=== PATIENT | female | born 1970 | race Caucasian/White ===

== ENCOUNTER 2018-04-02 12:38 | Inpatient (IN) | payer SELFPAY ==
--- NOTE | 2018-04-02 15:30 | EDPHYS ---
Physician Documentation [facility] Name: Rochelle Neely Age: 48 yrs Sex: Female : 1970 Arrival Date: 04/02/2018 Time: 12:38 Bed 14 Private MD: ED Physician Kumar Alves HPI: 04/02 15:21 This 48 yrs old Female presents to ER via Ambulatory with complaints of Wound snw Check. 15:21 The affected area is on the left hamstring. Previous treatment: none. pt states she has snw had a cyst to left thigh for several years, became red, swollen, tender 3-4 days ago, worsening. The patient has been recently seen at an urgent care, today, for similar complaints, and was sent to the [facility] Emergency Department for further evaluation. RESIDENT SERVICES MANAGER: 12:55 LMP N/A - Irregular menses aj Historical: - Allergies: 12:55 Codeine; aj - Home Meds: 12:55 None [Active]; aj - PMHx: 12:55 None; aj - PSHx: 12:55 None; aj - Immunization history:: Last tetanus immunization: < 5 years ago. - Social history:: Smoking status: Patient/guardian denies using tobacco. - Ebola Screening: : Patient negative for fever greater than or equal to 101.5 degrees Fahrenheit, and additional compatible Ebola Virus Disease symptoms Patient denies exposure to infectious person Patient denies travel to an Ebola-affected area in the 21 days before illness onset No symptoms or risks identified at this time. ROS: 15:20 Constitutional: Negative for fever, chills, and weight loss, Eyes: Negative for injury, snw pain, redness, and discharge, ENT: Negative for injury, pain, and discharge, Neck: Negative for injury, pain, and swelling, Cardiovascular: Negative for chest pain, palpitations, and edema, Respiratory: Negative for shortness of breath, cough, wheezing, and pleuritic chest pain, Abdomen/GI: Negative for abdominal pain, nausea, vomiting, diarrhea, and constipation, Back: Negative for injury and pain, : Negative for injury, bleeding, discharge, and swelling, MS/Extremity: Negative for injury and deformity, Neuro: Negative for headache, weakness, numbness, tingling, and seizure. 15:20 Skin: Positive for abscess, cellulitis, erythema, swelling, of the left hamstring. Exam: 15:18 Constitutional: This is a well developed, well nourished patient who is awake, alert, snw and in no acute distress. Head/Face: Normocephalic, atraumatic. Eyes: Pupils equal round and reactive to light, extra-ocular motions intact. Lids and lashes normal. Conjunctiva and sclera are non-icteric and not injected. Cornea within normal limits. Periorbital areas with no swelling, redness, or edema. ENT: Nares patent. No nasal discharge, no septal abnormalities noted. Tympanic membranes are normal and external auditory canals are clear. Oropharynx with no redness, swelling, or masses, exudates, or evidence of obstruction, uvula midline. Mucous membranes moist. Neck: Trachea midline, no thyromegaly or masses palpated, and no cervical lymphadenopathy. Supple, full range of motion without nuchal rigidity, or vertebral point tenderness. No Meningismus. Chest/axilla: Normal chest wall appearance and motion. Nontender with no deformity. No lesions are appreciated. Cardiovascular: Tachycardic rate and rhythm with a normal S1 and S2. No gallops, murmurs, or rubs. Normal PMI, no JVD. No pulse deficits. Respiratory: Lungs have equal breath sounds bilaterally, clear to auscultation and percussion. No rales, rhonchi or wheezes noted. No increased work of breathing, no retractions or nasal flaring. Abdomen/GI: Soft, non-tender, with normal bowel sounds. No distension or tympany. No guarding or rebound. No evidence of tenderness throughout. Back: No spinal tenderness. No costovertebral tenderness. Full range of motion. MS/ Extremity: Pulses equal, no cyanosis. Neurovascular intact. Full, normal range of motion. Neuro: Awake and alert, GCS 15, oriented to person, place, time, and situation. Cranial nerves II-XII grossly intact. Motor strength 5/5 in all extremities. Sensory grossly intact. Cerebellar exam normal. Normal gait. Psych: Awake, alert, with orientation to person, place and time. Behavior, mood, and affect are within normal limits. 15:18 Skin: Appearance: normal except for affected area, abscess, that is moderate sized, with drainage, with induration, with surrounding cellulitis, that is moderate, that is severe, cellulitis, that is severe, well demarcated. Vital Signs: 12:55 BP 158 / 88; Pulse 111; Resp 20; Temp 99.0; Pulse Ox 98% on R/A; Weight 90.72 kg; aj Height 5 ft. 1 in. (154.94 cm); 13:55 BP 139 / 81; Pulse 101; Resp 19; Pulse Ox 98% on R/A; rb1 14:30 BP 133 / 78; Pulse 96; Resp 18; Pulse Ox 98% on R/A; rb1 15:30 BP 149 / 90; Pulse 100; Resp 18; Pulse Ox 98% on R/A; rb1 16:30 BP 134 / 74; Pulse 105; Resp 19; Pulse Ox 98% on R/A; rb1 17:21 BP 137 / 75; Pulse 102; Resp 20; Pulse Ox 99% ; rb1 12:55 Body Mass Index 37.79 (90.72 kg, 154.94 cm) aj MDM: 13:34 Patient medically screened. snw 15:16 Physician consultation: Stoney Dixon MD was called at 15:10, was contacted at 15:10, kdr regarding admission, patient's condition, and will see patient in ED, NPO aftermidnight. 15:17 Data reviewed: vital signs, nurses notes. Data interpreted: Pulse oximetry: on room air snw is 98 %. Interpretation: normal. Counseling: I had a detailed discussion with the patient and/or guardian regarding: the historical points, exam findings, and any diagnostic results supporting the discharge/admit diagnosis, the presence of at least one elevated blood pressure reading (>120/80) during this emergency department visit, lab results, the need for further work-up and treatment in the hospital. Physician consultation:. 04/02 15:09 Order name: Sed Rate; Complete Time: 16:42 snw 04/02 15:09 Order name: Lactate; Complete Time: 16:42 snw 04/02 15:09 Order name: Basic Metabolic Panel; Complete Time: 16:42 snw 04/02 15:09 Order name: Blood Culture Adult (2) snw 04/02 15:09 Order name: CBC with Diff; Complete Time: 16:42 snw 04/02 15:09 Order name: Procalcitonin; Complete Time: 16:42 snw 04/02 15:09 Order name: IV Saline Lock - Large Bore; Complete Time: 15:39 [facility] 04/02 15:09 Order name: Labs collected and sent; Complete Time: 15:39 [facility] 04/02 16:17 Order name: Manual Differential; Complete Time: 16:42 EDMS Administered Medications: Discontinued: NS 0.9% (30 ml/kg) 30 ml/kg IV at bolus once; Sepsis Protocol 15:40 Drug: NS 0.9% (30 ml/kg) 30 ml/kg Route: IV; Rate: bolus; Site: right antecubital; rb1 15:40 Drug: Clindamycin 600 mg Route: IVPB; Infused Over: 30 mins; Site: right antecubital; rb1 16:28 Follow up: Response: No adverse reaction; IV Status: Completed infusion rb1 16:37 Drug: vancoMYCIN 1 grams Route: IVPB; Infused Over: 2 hrs; Site: right antecubital; rb1 17:47 Follow up: Response: No adverse reaction; IV Status: Completed infusion rb1 Disposition: 18:56 Co-signature as Attending Physician, Kumar Alves MD I agree with the assessment and kdr plan of care. Disposition: 04/02/18 15:29 Hospitalization ordered by Stoney Dixon for Inpatient Admission. Preliminary diagnosis are Cutaneous abscess of left lower limb, Cellulitis of left lower limb. - Bed requested for Telemetry/MedSurg (Inpatient). - Status is Inpatient Admission. rb1 - Condition is Stable. - Problem is new. - Symptoms are unchanged. UTI on Admission? No Signatures: Dispatcher [employer] EDCT Tita Licona RN RN aj Rittger, Kevin, MD MD [facility] Caryn Bustos, [employer] Mallika Parisi, RN RN rb1 Loren Arenas Corrections: (The following items were deleted from the chart) 15:40 15:29 Hospitalization Ordered by Stoney Dixon MD for Inpatient Admission. Preliminary eb diagnosis is Cutaneous abscess of left lower limb; Cellulitis of left lower limb. Bed requested for Telemetry/MedSurg (Inpatient). Status is Inpatient Admission. Condition is Stable. Problem is new. Symptoms are unchanged. UTI on Admission? No. snw 15:47 15:40 04/02/2018 15:29 Hospitalization Ordered by Stoney Dixon MD for Inpatient eb Admission. Preliminary diagnosis is Cutaneous abscess of left lower limb; Cellulitis of left lower limb. Bed requested for Telemetry/MedSurg (Inpatient). Status is Inpatient Admission. Condition is Stable. Problem is new. Symptoms are unchanged. UTI on Admission? No. eb 16:17 15:47 04/02/2018 15:29 Hospitalization Ordered by Stoney Dixon MD for Inpatient eb Admission. Preliminary diagnosis is Cutaneous abscess of left lower limb; Cellulitis of left lower limb. Bed requested for Telemetry/MedSurg (Inpatient). Status is Inpatient Admission. Condition is Stable. Problem is new. Symptoms are unchanged. UTI on Admission? No. eb 17:54 16:17 04/02/2018 15:29 Hospitalization Ordered by Stoney Dixon MD for Inpatient rb1 Admission. Preliminary diagnosis is Cutaneous abscess of left lower limb; Cellulitis of left lower limb. Bed requested for Telemetry/MedSurg (Inpatient). Status is Inpatient Admission. Condition is Stable. Problem is new. Symptoms are unchanged. UTI on Admission? No. eb
--- NOTE | 2018-04-02 15:30 | ER ---
Nurse's Notes [facility] Name: Rochelle Neely Age: 48 yrs Sex: Female : 1970 Arrival Date: 04/02/2018 Time: 12:38 Bed 14 Private MD: Diagnosis: Cutaneous abscess of left lower limb;Cellulitis of left lower limb Presentation: 04/02 12:53 Presenting complaint: Patient states: Abscess to left posterior thigh for 2 days. Sent aj for evaluation by Urgent Care. Transition of care: patient was not received from another setting of care. Onset of symptoms was March 31, 2018. Risk Assessment: Do you want to hurt yourself or someone else? Patient reports no desire to harm self or others. Initial Sepsis Screen: Does the patient meet any 2 criteria? No. Patient's initial sepsis screen is negative. Does the patient have a suspected source of infection? No. Patient's initial sepsis screen is negative. Care prior to arrival: None. 12:53 Method Of Arrival: Ambulatory 12:53 Acuity: DARIANA 3 aj Triage Assessment: 12:55 General: Appears in no apparent distress. comfortable, Behavior is calm, cooperative, aj appropriate for age. Pain: Complains of pain in left hamstring. Neuro: Level of Consciousness is awake, alert, obeys commands, Oriented to person, place, time, situation, Appropriate for age. Respiratory: Airway is patent Respiratory effort is even, unlabored, Respiratory pattern is regular, symmetrical. Derm: Skin is intact, is healthy with good turgor, Skin is pink, warm \\T\\ dry. normal, Abscess located on left hamstring is half dollar sized, has clear drainage, is hot to touch, is red, is raised. RISK TECH: 12:55 LMP N/A - Irregular menses aj Historical: - Allergies: 12:55 Codeine; aj - Home Meds: 12:55 None [Active]; aj - PMHx: 12:55 None; aj - PSHx: 12:55 None; aj - Immunization history:: Last tetanus immunization: < 5 years ago. - Social history:: Smoking status: Patient/guardian denies using tobacco. - Ebola Screening: : Patient negative for fever greater than or equal to 101.5 degrees Fahrenheit, and additional compatible Ebola Virus Disease symptoms Patient denies exposure to infectious person Patient denies travel to an Ebola-affected area in the 21 days before illness onset No symptoms or risks identified at this time. Screenin:25 Abuse screen: Denies threats or abuse. Nutritional screening: No deficits noted. rb1 Tuberculosis screening: No symptoms or risk factors identified. Fall Risk None identified. Assessment: 13:25 General: Appears in no apparent distress. comfortable, Behavior is calm, cooperative, rb1 Denies fever. General: pt. stated, "I have had a cyst on the back of my leg for about six years and it just started bothering a couple days ago.". Pain: Denies pain. Pain: Complains of pain in left hamstring Pain currently is 1 out of 10 on a pain scale. Neuro: Level of Consciousness is awake, alert, obeys commands, Oriented to person, place, time, situation. Cardiovascular: Capillary refill < 3 seconds is brisk in bilateral fingers. Respiratory: Airway is patent Respiratory effort is even, unlabored, Respiratory pattern is regular, symmetrical. GI: No signs and/or symptoms were reported involving the gastrointestinal system. : No signs and/or symptoms were reported regarding the genitourinary system. Derm: Skin is red, Skin temperature is warm Wound noted left hamstring Parent/caregiver reports the patient having pt. stated, "I got some green nasty stuff out of it and then it started bleeding yesterday.". Musculoskeletal: Range of motion: intact in all extremities. 14:20 Reassessment: Patient appears in no apparent distress at this time. No changes from rb1 previously documented assessment. 15:20 Reassessment: Patient appears in no apparent distress at this time. Patient and/or rb1 family updated on plan of care and expected duration. Pain level reassessed. Patient is alert, oriented x 3, equal unlabored respirations, skin warm/dry/pink. 16:00 Reassessment: Tried to call report but was told that the room was dirty and the [facility] vice president payer was going there next per Izzy, principal secretary. 16:15 Reassessment: Spoke to Izzy on 4 th floor, room is still dirty, unable to give rb1 report. Izzy stated, "We have the pt. going to room 418 not 413 so you might want to have them change it." [facility] 16:20 Reassessment: Patient appears in no apparent distress at this time. No changes from rb1 previously documented assessment. 16:40 Reassessment: Tried to call report and was told that the room was still dirty. rb1 Housekeeping was cleaning 411 and I asked if they could clean 418 next and Izzy got agitated and said that they were going there next. Izzy said that she contacted wash house worker to get more housekeepers to the floor to help clean the rooms. Notified SOCORRO Heck. 17:15 Reassessment: Patient appears in no apparent distress at this time. Patient and/or rb1 family updated on plan of care and expected duration. Pain level reassessed. Patient is alert, oriented x 3, equal unlabored respirations, skin warm/dry/pink. Dr. Dixon is at bedside discussing the POC with the pt. 17:17 Reassessment: I tried to call report again and was told by Izzy that GINO Roper was in rb1 a pt. room and would need a few minutes before she could get report. 17:36 Reassessment: Gave report to GINO Roper. Information from the SBAR was given. All rb1 questions asked and answered. Vital Signs: 12:55 BP 158 / 88; Pulse 111; Resp 20; Temp 99.0; Pulse Ox 98% on R/A; Weight 90.72 kg; aj Height 5 ft. 1 in. (154.94 cm); 13:55 BP 139 / 81; Pulse 101; Resp 19; Pulse Ox 98% on R/A; rb1 14:30 BP 133 / 78; Pulse 96; Resp 18; Pulse Ox 98% on R/A; rb1 15:30 BP 149 / 90; Pulse 100; Resp 18; Pulse Ox 98% on R/A; rb1 16:30 BP 134 / 74; Pulse 105; Resp 19; Pulse Ox 98% on R/A; rb1 17:21 BP 137 / 75; Pulse 102; Resp 20; Pulse Ox 99% ; rb1 12:55 Body Mass Index 37.79 (90.72 kg, 154.94 cm) aj ED Course: 12:38 Patient arrived in ED. as 12:54 Triage completed. aj 12:55 Arm band placed on left wrist. Patient placed in waiting room, Patient notified of wait aj time. 13:25 Patient has correct armband on for positive identification. Bed in low position. Call rb1 light in reach. Side rails up X 1. Pulse ox on. NIBP on. 13:33 Caryn Bustos [facility]-C [facility]. snw 13:33 Kumar Alves MD is Attending Physician. snw 13:42 Mallika Parisi, RN is Primary Nurse. rb1 15:28 Stoney Dixon MD is Hospitalizing Provider. snw 15:30 Initial lab(s) drawn, by mt, sent to lab. First set of blood cultures drawn by mt, ag Second set of blood cultures drawn. Inserted saline lock: 20 gauge in right antecubital area, using aseptic technique. Blood collected. 15:39 Sed Rate Sent. ag 15:39 Lactate Sent. ag 15:39 Basic Metabolic Panel Sent. ag 15:39 Blood Culture Adult (2) Sent. ag 15:39 CBC with Diff Sent. ag 15:39 Procalcitonin Sent. ag 17:53 No provider procedures requiring assistance completed. Patient admitted, IV remains in rb1 place. Administered Medications: Discontinued: NS 0.9% (30 ml/kg) 30 ml/kg IV at bolus once; Sepsis Protocol 15:40 Drug: NS 0.9% (30 ml/kg) 30 ml/kg Route: IV; Rate: bolus; Site: right antecubital; rb1 15:40 Drug: Clindamycin 600 mg Route: IVPB; Infused Over: 30 mins; Site: right antecubital; rb1 16:28 Follow up: Response: No adverse reaction; IV Status: Completed infusion rb1 16:37 Drug: vancoMYCIN 1 grams Route: IVPB; Infused Over: 2 hrs; Site: right antecubital; rb1 17:47 Follow up: Response: No adverse reaction; IV Status: Completed infusion rb1 Outcome: 15:29 Decision to Hospitalize by Provider. snw 17:53 Admitted to Tele accompanied by tech, family with patient, via wheelchair, room 418, rb1 with chart, Report called to GINO Roper 17:53 Condition: stable 17:53 Instructed on the need for admit. 17:54 Patient left the ED. rb1 Signatures: Tita Licona RN Caryn Lugo FNP-C DIRECTOR REGULATORY AFFAIRS-Csnw Vera Dixon Ana Mallika Parisi, RN RN rb1 Corrections: (The following items were deleted from the chart) 17:23 17:15 Reassessment: Dr. Dixon is at bedside discussing the POC with the pt. rb1 rb1
[2018-04-02] MEDS ORDERED: CLINDAMYCIN 600MG/D5W 600 MG/50 ML BAG IV ONE (15:40)
[2018-04-02] MEDS ORDERED: NA CHLORIDE 0.9% 2,000 ML ONE (15:40)
[2018-04-02 15:52] LABS: Absolute Monocytes 0.5 K/uL (0.1-1.3); Basophils % 0.4 % (0-1.3); Eosinophils % 0.6 % (0-4.4); Lymphocytes % 8.7 % (15.3-44.8); MCH 32.4 pg (27.0-35.0); MCV 92.3 fL (80-100); MPV 8.5 fL (7.6-11.3); Monocytes % 4.2 % (3.3-12.3); RBC Red Blood Cell Count 4.23 M/uL (3.86-4.86)
[2018-04-02 16:16] LABS: Platelet Estimate ADEQ
[2018-04-02 16:17] LABS: Blood Morphology Comment NOTED (NOT SEEN); Polychromasia 1+
[2018-04-02 16:20] LABS: BUN Blood Urea Nitrogen 6 mg/dL (7-18); Bicarbonate 28 mmol/L (21-32); Glucose Level 98 mg/dL (74-106); Potassium 3.5 mmol/L (3.5-5.1); Sodium Level 136 mmol/L (136-145)
[2018-04-02] MEDS ORDERED: VANCOMYCIN/NS 1 gm 1 GM/250 ML BAG IVPB SCH (17:00)
[2018-04-02] MEDS ORDERED: CLINDAMYCIN INJ 600 MG in NA CHLORIDE 0.9% 50 ML IV ONE (17:00)
[2018-04-02] MEDS ORDERED: ACETAMINOPHEN 500 MG TAB PO PRN (18:10)
[2018-04-02] MEDS ORDERED: CLINDAMYCIN INJ 600 MG in NA CHLORIDE 0.9% 50 ML IV SCH (18:10)
[2018-04-02] MEDS: NA CHLORIDE 0.9% 1,000 ML IV SCH (19:24)
[2018-04-02] MEDS: HYDROCODONE/APAP 5/325 MG TAB PO PRN ×2 (19:27→21:11)
[2018-04-02] MEDS ORDERED: VANCOMYCIN 1 GM in NA CHLORIDE 0.9% 500 ML IVPB SCH (21:00)
[2018-04-02] MEDS ORDERED: VANCOMYCIN 500 MG in NA CHLORIDE 0.9% 100 ML IVPB ONE (21:00)
[2018-04-02] MEDS ORDERED: VANCOMYCIN 500 MG/VIAL ONE (21:06)
[2018-04-02] MEDS ORDERED: NA CHLORIDE 0.9% 100 ML ONE (21:06)
[2018-04-02 23:43] VITALS: BMI 37.8
[2018-04-03] MEDS ORDERED: CLINDAMYCIN INJ 600 MG in NA CHLORIDE 0.9% 50 ML IV SCH (01:00)
[2018-04-03] MEDS: NA CHLORIDE 0.9% 1,000 ML IV SCH ×3 (01:50→17:44)
[2018-04-03] MEDS: CLINDAMYCIN INJ 600 MG in NA CHLORIDE 0.9% 50 ML IV SCH ×3 (01:50→17:44)
[2018-04-03] MEDS: VANCOMYCIN 1.5 GM in NA CHLORIDE 0.9% 500 ML IVPB SCH ×2 (08:26→21:20)
--- NOTE | 2018-04-03 10:14 | HP ---
Date of Admission: 04/02/2018 Reason For Service: Cellulitis and abscess of the left buttock and thigh. History Of Present Illness: This is the case of a 48-year-old patient who claims she has mass on the left thigh posteriorly. She has been postponing to remove it for a long time, this time came with r edness over an area of the buttock and thigh that has been 25 x 15 cm. She started to notice some pu rulent discharge coming from the mass and induration and increased increase temperature of the thigh for the last week. She denies any trauma, dysuria, hematuria, hematochezia, or melena. Denies any r ecent traveling out of the country. Denies any family members sick at home. The patient advised the importance of colonoscopies, breast exams, mammograms, and also the importance of wound caring when this is taken care of. Past Medical History: None. Allergies: NONE. Social History: She does smoke. She does not drink alcohol. Family History: Noncontributory. Review of Systems: Ten points otherwise unremarkable. Physical Examination: General: The patient is awake, alert. HEENT: Pupils are equal and reactive, anicteric. Neck: Supple. Chest: Clear. Heart: S1, S2. Abdomen: Soft and depressible. Nontender, nondistended. Bowel sounds positive. Breasts/Rectal/Pelvic: Deferred. Extremities: Over the left buttock and left thigh, the patient has an area of cellulitis, increased induration, also pressing over the mass in the center with purulent discharge. Dorsalis pedis pulses bilaterally are present. Full range of motion. Neuro: Cranial nerves 2 through 12 grossly within normal limits. Laboratory Data: Blood work is reviewed. Assessment: A 48-year-old patient with cellulitis and abscess of the left buttock and thigh. The pa tient will need incision and drainage with benefits, alternatives, and risks including, but not limit ed to infection, bleeding, damage to adjacent structures, anesthesia complication, nonhealing wound, ID, and even . She also understood this may not relieve the symptoms. She might need more than one surgical intervention. She understands she will require wound care. It is tender right now, to be done with local anesthetic. She does not want a local anesthetic, she wants anesthesia, so we ar e going to put her n.p.o. and then proceed accordingly. /JOE Voice ID: [id number]
[2018-04-03] MEDS ORDERED: FENTANYL CITR 100 MCG/2 ML ONE (12:55)
[2018-04-03] MEDS ORDERED: PROPOFOL 200 MG/20 ML VIAL IV ONE (12:55)
[2018-04-03] MEDS ORDERED: LIDOCAINE 1% MPF 5 ML VIAL ONE (12:55)
[2018-04-03] MEDS ORDERED: MIDAZOLAM HCL 2 MG/2 ML INJ ONE (12:55)
[2018-04-03] MEDS ORDERED: KETOROLAC 30 MG/ML INJ ONE (13:33)
[2018-04-03] MEDS ORDERED: ONDANSETRON HCL 40 MG/20 ML VIAL ONE (13:42)
--- NOTE | 2018-04-03 13:54 | P.BOP ---
Preoperative diagnosis: left thigh infected subQ mass with cellulitis abscess thigh and buttock Postoperative diagnosis: same Primary procedure: 1. Excision of infected left thigh subQ mass 5x5cm Secondary procedure: 2. incision and drainage of left thigh abscess 20cm Estimated blood loss: <25cc Specimen: culture, mass Findings: mass, abscess Anesthesia: General Complications: None Transferred to: Recovery Room Condition: Good
[2018-04-03 14:04] VITALS: O2SAT 97
[2018-04-03] MEDS ORDERED: TRAMADOL 37.5mg/APAP 325mg PER TAB PO PRN (14:08)
--- NOTE | 2018-04-03 14:25 | OP ---
Date of Procedure: 04/03/2018 Surgeon: Stoney Dixon MD Preoperative Diagnoses: Left thigh and buttock cellulitis with left thigh abscess and infected subcu taneous mass. Postoperative Diagnoses: Left thigh and buttock cellulitis with left thigh abscess and infected subc utaneous mass. Procedure: Excisional biopsy of infected subcutaneous mass, left thigh, about 5 x 5 cm with drainage of a left thigh abscess about 25 x 15 cm. Anesthesia: General plus local. Indications: This is the case of a 48-year-old patient has a mass on the left thigh region a few yea rs ago, but she has not been able to address that issue. Right now, she comes with severe cellulitis of the thigh region with infected mass, purulent discharge. The patient understands the need for re moval of the mass and drainage of an abscess with benefits, alternatives, and risks fully explained, which include, but are not limited to infection, bleeding, damage to adjacent structures, anesthesia complication, nonhealing wound, KS, and even . She also understood this may not relieve any sym ptoms. She might need more than one surgical invention. She understood and signed a consent. The a deena of concern was marked by me and the patient in the holding room. Description Of Procedure: The patient was brought to the operating room, placed in supine position. Anesthesia was done without complication. Left thigh was prepped and draped in a sterile fashion. Local anesthesia was applied followed by sharp incision of the skin. The mass was completely excised . It goes deep. After the mass was excised, we proceeded then to found abscess with multiple locula tions that were explored. Pus was removed, cultured, hemostasis obtained, and the area was packed wi th wet-to-dry dressing. The patient tolerated the procedure well. The patient was sent to recovery in stable condition. HYACINTH/JOE Voice ID: [id number] Report ID: [id number]
[2018-04-03] MEDS: HYDROCODONE/APAP 5/325 MG TAB PO PRN ×2 (17:44→21:21)
[2018-04-04] MEDS: NA CHLORIDE 0.9% 1,000 ML IV SCH ×2 (01:38→09:51)
[2018-04-04] MEDS: CLINDAMYCIN INJ 600 MG in NA CHLORIDE 0.9% 50 ML IV SCH ×2 (01:38→09:51)
[2018-04-04] MEDS: HYDROCODONE/APAP 5/325 MG TAB PO PRN ×2 (01:39→06:18)
[2018-04-04] MEDS: VANCOMYCIN 1.5 GM in NA CHLORIDE 0.9% 500 ML IVPB SCH (09:51)
--- NOTE | 2018-04-04 12:24 | P.DS ---
Admission Date: 04/02/18 Discharge Date: 04/04/18 Disposition: ROUTINE DISCHARGE Discharge Condition: GOOD Vital Signs/Physical Exam: Temp Pulse Resp BP Pulse Ox 97.3 F 78 18 144/74 H 94 04/04/18 08:00 04/04/18 08:00 04/04/18 08:00 04/04/18 08:00 04/04/18 08:00 General: Alert, Oriented x3, Cooperative HEENT: PERRLA, EOMI Neck: Supple Respiratory: Normal air movement Cardiovascular: No edema, Normal pulses Gastrointestinal: Soft and benign, No rebound, No guarding Musculoskeletal: Erythema (better) Integumentary: No warmth, No cyanosis, Erythema (better) Neurological: Normal speech Laboratory Data at Discharge: WBC 11.6 K/uL (4.3-10.9) H 04/02/18 15:30 Hgb 13.7 g/dL (12.0-15.0) 04/02/18 15:30 Hct 39.0 % (36.0-45.0) 04/02/18 15:30 Plt Count 265 K/uL (152-406) 04/02/18 15:30 Sodium 136 mmol/L (136-145) 04/02/18 15:30 Potassium 3.5 mmol/L (3.5-5.1) 04/02/18 15:30 BUN 6 mg/dL (7-18) L 04/02/18 15:30 Creatinine 0.50 mg/dL (0.55-1.3) L 04/02/18 15:30 Glucose 98 mg/dL (74-106) 04/02/18 15:30 Home Medications: Ciprofloxacin HCl [Cipro 500 MG Tablet] 500 mg PO BID #14 tab 04/04/18 NaCl 0.9% Irr Bottle [Ns Irrigation Bottle] 1,000 ml IR DAILY #1 btl 04/04/18 New Medications: Ciprofloxacin HCl [Cipro 500 MG Tablet] 500 mg PO BID #14 tab NaCl 0.9% Irr Bottle [Ns Irrigation Bottle] 1,000 ml IR DAILY #1 btl Patient Discharge Instructions: wet to dry NS daily Diet: AHA Activity: No lifting more than 10 lbs Followup: Stoney Dixon MD [ACTIVE - CAN ADMIT] - 1 Week
[2018-04-04 12:31] VITALS: TEMP 97.6
--- NOTE | 2018-04-04 12:43 | PN ---
Date of Progress Note: 04/04/2018 Diagnoses: Cellulitis and abscess of the left thigh and part of the buttocks. Subjective: The patient is feeling better, afebrile. No shortness of breath, no chest pain. Review of Systems: Ten points otherwise unremarkable. Physical Examination: Extremities: No purulent discharge. Excellent granulation tissue. No fluctuance, no crepitus. Goo d peripheral pulses. Plan: See my discharge summary. HYACINTH/JOE Voice ID: [id number] Report ID: [id number]
[2018-04-04 13:31] VITALS: BP 168/74
[2018-04-04] MEDS ORDERED: VANCOMYCIN 1.75 GM in NA CHLORIDE 0.9% 500 ML IVPB SCH (21:00)
== END 2018-04-04 13:28 | disposition home or self-care (01) | DRG 603 ==
LOC: ER 12:38 → ERHOLD 15:31 → 4TH 17:42
PROVIDERS: ADMIT Surgery; ATTEND Surgery
PROC: 0JBM0ZX Excision of Left Upper Leg Subcutaneous Tissue and Fascia, Open Approach, Diagnostic (ICD-10-PCS; principal; 2018-04-03 14:30)
DX: L02.416 Cutaneous abscess of left lower limb (principal); L03.317 Cellulitis of buttock; L03.116 Cellulitis of left lower limb
CPT/HCPCS: 36415; 80048; 80202; 81025; 83605; 84145; 85025; 85652; 87040; 87070; 87075; 87205; 88304; 96365; 96367; 96375; 99285; J2250; J2405; J3010; J3370; J7030